=== PATIENT | male | born 1960 | race Caucasian/White ===

== ENCOUNTER 2019-04-01 10:04 | Observation (INO) | payer SELFPAY ==
[~2019-04-01] VITALS: Ht 170.2 cm; Wt 91.4 kg
--- NOTE | 2019-04-01 10:32 | REP ---
Head CT without contrast: History: CVA. Comparison study: No comparison study. CT findings: Bone window settings demonstrate an intact bony calvarium. There is no evidence of skull fracture or incidental bony calvarial lesion. The visualized paranasal sinuses appear clear. No intraorbital abnormality is seen. On soft tissue window setting images; the lateral, third, and fourth ventricles are normal in size and position. Vasquez-white differentiation pattern is normal above and below the tentorium. There are is no evidence of intracranial hemorrhage. No mass, edema, infarction, or midline shift is seen. No extra-axial fluid collection is appreciated. Impression: Negative noncontrast head CT. Electronically Signed by Yadiel Arango MD 04/01/2019 10:30 A
--- NOTE | 2019-04-01 11:07 | REP ---
Portable chest, 10:28 a.m., single AP view with the patient upright: There are no comparisons. The lung thacker are clear. The cardiac size is normal. The jayna, mediastinum, and skeletal structures are unremarkable. Impression: Negative portable chest. Electronically Signed by Monster Howell MD 04/01/2019 10:59 A
--- NOTE | 2019-04-01 11:17 | ECGEPIP ---
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
[2019-04-01 11:22] LABS: BASO % 0.3 % (0.0-1.0); EOS # 0.1 10^3/uL (0.0-0.5); EOS % 1.2 % (0.0-3.0); HEMATOCRIT 44.8 % (42.0-52.0); HEMOGLOBIN 15.5 g/dl (13.5-17.5); LYMPH # 2.2 10^3/uL (1.5-5.0); LYMPH % 31.7 % (24.0-44.0); MEAN CORPUSCULAR HEMOGLOBIN 30.3 pg (27.0-33.0); MEAN CORPUSCULAR HGB CONC 34.6 g/dl (32.0-36.5); MEAN CORPUSCULAR VOLUME 87.7 fl (80.0-96.0); MONO # 0.6 10^3/uL (0.0-0.8); MONO % 8.2 % (0.0-5.0); NEUTROPHILS % 58.3 % (36.0-66.0); PLATELET COUNT, AUTOMATED 326 10^3/uL (150-450); RED BLOOD COUNT 5.11 10^6/uL (4.30-6.10); WHITE BLOOD COUNT 6.8 10^3/uL (4.0-10.0)
[2019-04-01 11:31] LABS: INR 1.05; PROTHROMBIN TIME 13.4 SECONDS (11.8-14.0)
[2019-04-01 11:32] LABS: PARTIAL THROMBOPLASTIN TIME 27.2 SECONDS (25.0-38.4)
[2019-04-01 11:58] LABS: ALBUMIN 4.5 GM/DL (3.2-5.2); ALT/SGPT 38 U/L (12-78); BILIRUBIN,DIRECT 0.2 MG/DL (0.0-0.2); BILIRUBIN,TOTAL 1.1 MG/DL (0.2-1.0); CK-MB VALUE MASS 1.2 NG/ML (<3.6); CPK CREATINE PHOSPHOKINASE 147 U/L (39-308); MB/CK RELATIVE INDEX 0.82 (< OR =4); TOTAL PROTEIN 7.4 GM/DL (6.4-8.2); TROPONIN I < 0.02 NG/ML (< 0.10)
[2019-04-01] MEDS ORDERED: ASPIRIN 325 MG TAB PO ONE (12:45)
[2019-04-01 12:55] LABS: BLOOD UREA NITROGEN 17 MG/DL (7-18); CALCIUM LEVEL 9.6 MG/DL (8.5-10.1); CARBON DIOXIDE LEVEL 27 MEQ/L (21-32); CHLORIDE LEVEL 108 MEQ/L (98-107); GLOMERULAR FILTRATION RATE > 60.0 (>56); GLUCOSE, FASTING 96 MG/DL (70-100); POTASSIUM SERUM 3.9 MEQ/L (3.5-5.1); SODIUM LEVEL 141 MEQ/L (136-145)
--- NOTE | 2019-04-01 13:58 | HPEPDOC ---
General Date of Admission 04/01/19 Date of Service: Apr 01, 2019 Chief Complaint The patient is a 58-year-old male admitted for facial droop. Source: Patient Exam Limitations: No limitations History of Present Illness 58 year old male presents with L facial droop. States symptoms started Monday with episode of lightheadedness, lasted a few minutes and then resolved, followed by generalized weakness/fatigue. Slept all afternoon Monday which is unusual for him. Monday with episodes of confusion with word finding difficulties, balance issues, noticed L sided facial droop. Symptoms had completely resolved by Monday evening. Presents today at urging of family. BP on arrival 200/95 (currently 147/80), CT head negative, tx with ASA, admission for further management. Home Medications No Active Prescriptions or Reported Meds Allergies Coded Allergies: No Known Allergies (Verified Allergy, Unknown, 04/01/19) Past Medical History Medical History none Surgical History none Family History Significant Family History: Other (stroke father ) Social History * Smoker: Denies Alcohol: Denies Drugs: denies A-FIB/CHADSVASC A-FIB History Current/History of A-Fib/PAF?: No Review of Systems Constitutional: Denies: Chills, Fever, Night Sweats Eyes: Denies: Pain, Vision change ENT: Denies: Head Aches, Ear Pain, Dysphagia Skin: Denies: Rash, Lesions, Breakdown Pulmonary: Denies: Dyspnea, Cough Cardiovascular: Denies: Chest Pain, Palpitations, Orthopnea, Paroxysmal Noc. Dyspnea, Lt Headedness Gastrointestinal: Denies: Nausea, Vomiting, Abdominal Pain, Diarrhea Genitourinary: Denies: Dysuria, Frequency, Incontinence, Retention Hematologic: Denies: Bruising, Bleeding Excessively Musculoskeletal: Denies: Neck Pain, Back Pain, Joint Pain, Muscle Pain, Spasms Neurological: Denies: Weakness, Numbness, Change in speech, Confusion Psych: Reports: Mood Normal; Denies: Depression, Memory Issues Physical Examination General Exam: Positive: Alert, No Acute Distress Eye Exam: Positive: PERRLA, Conjunctiva & lids normal, EOMI; Negative: Sclera icteric ENT Exam: Positive: Atraumatic, Mucous membr. moist/pink, Pharynx Normal Neck Exam: Positive: Supple; Negative: JVD, thyromegaly Chest Exam: Positive: Clear to auscultation, Normal air movement Heart Exam: Positive: Rate Normal, Regular Rhythm, Normal S1, Normal S2; Negative: Murmurs, Rubs Telemetry: Positive: No significant arrhythmia Abdomen Exam: Positive: Normal bowel sounds, Soft; Negative: Tenderness, Hepatospenomegaly Extremity Exam: Positive: Normal pulses; Negative: Clubbing, Cyanosis, Edema Skin Exam: Positive: Nl turgor and temperature; Negative: Breakdown, Lesion Neuro Exam: Positive: Normal Gait, Normal Speech, Cranial Nerves 3-12 NL, Reflexes 2+ Psych Exam: Positive: Mental status NL, Mood NL, Oriented x 3 Vital Signs Vital Signs Date Time Temp Pulse Resp B/P (MAP) Pulse Ox O2 Delivery O2 Flow Rate FiO2 04/01/19 13:22 04/01/19 13:04 57 96 04/01/19 10:04 98.6 18 Room Air Laboratory Data Labs 24H Laboratory Tests 2 04/01/19 11:00: Immature Granulocyte % (Auto) 0.3, Neutrophils (%) (Auto) 58.3, Lymphocytes (%) (Auto) 31.7, Monocytes (%) (Auto) 8.2H, Eosinophils (%) (Auto) 1.2, Basophils (%) (Auto) 0.3, Neutrophils # (Auto) 4.0, Lymphocytes # (Auto) 2.2, Monocytes # (Auto) 0.6, Eosinophils # (Auto) 0.1, Basophils # (Auto) 0.0, Nucleated Red Blood Cells % (auto) 0.0, Prothrombin Time 13.4, Prothromb Time International Ratio 1.05, Activated Partial Thromboplast Time 27.2, Anion Gap 6L, Glomerular Filtration Rate > 60.0, Calcium Level 9.6, Total Bilirubin 1.1H, Direct Bilirubin 0.2, Aspartate Amino Transf (AST/SGOT) 24, Alanine Aminotransferase (ALT/SGPT) 38, Alkaline Phosphatase 76, Total Creatine Kinase 147, Creatine Kinase MB 1.2, Creatine Kinase MB Relative Index 0.82, Troponin I < 0.02, Total Protein 7.4, Albumin 4.5, Albumin/Globulin Ratio 1.55, Thyroid Stimulating Hormone (TSH) 1.180 CBC/BMP Laboratory Tests 04/01/19 11:00 Assessment/Plan 1. TIA - CT head negative. - admit to med/surg. - MRI brain, cardiac ECHO/carotid US. - neurochecks, ASA. - check lipid panel, A1c, TSH. 2. hypertension - monitor, IV as needed. Plan / VTE VTE Prophylaxis Ordered?: Yes HADLEY PALENCIA MD Apr 01, 2019 13:58
[2019-04-01] MEDS ORDERED: ACETAMINOPHEN TAB 650MG DOSE (2X325MG) PO PRN (14:00)
[2019-04-01] MEDS ORDERED: hydrALAZINE INJ 20 MG/ML VIAL IV PRN (14:15)
--- NOTE | 2019-04-01 15:57 | REPVR ---
PROCEDURE INFORMATION: Exam: MR Head Without Contrast Exam date and time: 04/01/2019 3:18 PM Age: 58 years old Clinical indication: Altered mental status/memory loss and weakness, facial; Confusion or disorientation; Additional info: TIA TECHNIQUE: Imaging protocol: MR of the head without contrast. COMPARISON: CT Head without contrast 04/01/2019 10:16 AM FINDINGS: Brain: There is no acute intracranial hemorrhage, cerebral edema, or midline shift. No restricted diffusion is present to suggest acute infarction. Ventricles: No hydrocephalus. Bones/joints: Unremarkable. Soft tissues: Unremarkable. Sinuses: Normal as visualized. No acute sinusitis. Mastoid air cells: Normal as visualized. No mastoid effusion. Orbits: Unremarkable. IMPRESSION: No acute findings. Electronically signed by: Greg Bonilla On 04/01/2019 15:57:12 PM
[2019-04-01 17:00] VITALS: BP 153/91
--- NOTE | 2019-04-01 19:05 | REPVR ---
EXAM: US Duplex Bilateral Extracranial Arteries. CLINICAL HISTORY: Other: TIA TECHNIQUE: Real-time ultrasound scan of the bilateral carotid and vertebral arteries, 2-D miller scale, with color Doppler flow and spectral waveform analysis. COMPARISON: None FINDINGS: Mild atherosclerotic plaque is identified at the carotid bifurcations. No penetrating ulcer is seen. Normal pulsatile low resistance waveforms are noted in the common and internal carotid arteries. The peak systolic velocity within the right internal carotid artery measures up to 96 cm/sec. This corresponds to less than 50% stenosis. The peak systolic velocity within the left internal carotid artery measures up to 69 cm/sec. This corresponds to less than 50% stenosis. The bilateral vertebral arteries have antegrade flow. IMPRESSION: 1. Less than 50% stenosis involving the bilateral internal carotid arteries 2. Antegrade flow in the bilateral vertebral arteries The degree of stenosis is based on the following consensus criteria developed by the Society of Radiologists in Ultrasound (SRU): Normal: ICA peak systolic velocity (PSV) less than 125 cm/s without plaque <50% stenosis: PSV <125 cm/s with estimated plaque < 50% and ICA/CCA <2 50-69% stenosis: PSV 125-230 cm/s with estimated plaque > 50% and ICA/CCA 2-4 >70% but less than near occlusion: PSV >230 cm/s, plaque >50%, and ICA/CCA > 4 Near occlusion: PSV- high, low, or undetectable, marked luminal narrowing from plaque Total occlusion: Flow undetectable and occluded ICA lumen Electronically signed by: Greg Bonilla On 04/01/2019 19:05:06 PM
[2019-04-01 19:51] VITALS: BP 168/87
[2019-04-02 04:00] VITALS: BP 122/58
[2019-04-02 07:12] LABS: HEMOGLOBIN A1c 6.1 %
[2019-04-02 07:31] LABS: ALBUMIN 3.9 GM/DL (3.2-5.2); ALT/SGPT 30 U/L (12-78); BILIRUBIN,TOTAL 1.3 MG/DL (0.2-1.0); BLOOD UREA NITROGEN 17 MG/DL (7-18); CALCIUM LEVEL 8.8 MG/DL (8.5-10.1); CARBON DIOXIDE LEVEL 27 MEQ/L (21-32); CHLORIDE LEVEL 107 MEQ/L (98-107); CHOLESTEROL LEVEL 218 MG/DL (<200); CREATININE FOR GFR 0.99 MG/DL (0.70-1.30); GLOMERULAR FILTRATION RATE > 60.0 (>56); GLUCOSE, FASTING 110 MG/DL (70-100); HDL CHOLESTEROL 40 MG/DL (>40); LDL CHOLESTEROL 156 MG/DL (<100); NON-HDL-C 178 MG/DL; POTASSIUM SERUM 3.9 MEQ/L (3.5-5.1); SODIUM LEVEL 138 MEQ/L (136-145); TOTAL PROTEIN 6.9 GM/DL (6.4-8.2); TRIGLYCERIDES LEVEL 109 MG/DL (<150)
[2019-04-02] MEDS ORDERED: ASPIRIN 81 MG CHEW TABLET PO SCH (09:00)
[2019-04-02] MEDS ORDERED: ASPI81CH33 PO (10:50)
--- NOTE | 2019-04-02 16:28 | DS.PDOC ---
Discharge Summary General Date of Admission Apr 01, 2019 at 10:05 Date of Discharge 04/02/2019 Discharge Summary PROCEDURES PERFORMED DURING STAY: [None]. ADMITTING DIAGNOSES / DISCHARGE DIAGNOSES: Left facial droop - likely 2/2 TIA, unlikely 2/2 CVA HTN; s/p Urgency DVT prophylaxis COMPLICATIONS/CHIEF COMPLAINT: Left facial droop HISTORY OF PRESENT ILLNESS / HOSPITAL COURSE: Patient is 58-year-old male with no significant past medical history, who presented to the emergency room with compensatory left-sided facial droop. Patient has reported that his symptoms had started on Monday. Patient also noted associated generalized weakness and fatigue. Patient had episodes of confusion and word finding difficulties, as well as imbalance. On Monday evening patient's symptoms had completely resolved. Blood pressure upon arrival to the emergency room. Was found to be 200s over 95. Patient was admitted to the hospitalist service for further evaluation and treatment. Patient received an MRI that was negative for any acute abnormalities. Patient also received a carotid ultrasound that was negative. Echocardiogram has been completed as an inpatient. Patient is cleared for home safety evaluation with physical therapy. Patient has been advised to follow up with his primary care provider and neurology within the next 7 days. DISCHARGE MEDICATIONS: Please see below. ALLERGIES: Please see below. PHYSICAL EXAMINATION ON DISCHARGE: Vitals (See below) General: Lying in bed, no acute distress, comfortable, AAOx3 HEENT: NC, AT CVS: +S1S2 Lungs: Fair air entry b/l, -w/r/r Abdomen: Soft, ND, NT Extremities: - Edema, - Calf tenderness LABORATORY DATA: Please see below. IMAGING: CT head 04/01: Negative noncontrast head CT. MRI Brain 04/01: No acute findings. Carotid US 04/01: 1. Less than 50% stenosis involving the bilateral internal carotid arteries 2. Antegrade flow in the bilateral vertebral arteries ACTIVITY: [As tolerated]. DISCHARGE PLAN: Follow-up with primary care provider and neurology within 7 days Remain compliant with treatment plan and medications Return to the ER if you experience any problems DISPOSITION: Home, Self-Care. DISCHARGE CONDITION: [Stable]. TIME SPENT ON DISCHARGE: 20 minutes Vital Signs/I&Os Vital Signs Date Time Temp Pulse Resp B/P (MAP) Pulse Ox O2 Delivery O2 Flow Rate FiO2 04/02/19 04:00 97.7 71 18 122/58 (79) 96 Room Air I&O- Last 24 Hours up to 6 AM 04/02/19 05:59 Intake Total 300 ml Output Total 250 ml Balance 50 ml Laboratory Data Labs 24H Laboratory Tests 2 04/02/19 06:38: Anion Gap 4L, Glomerular Filtration Rate > 60.0, Estimated Mean Plasma Glucose 128H, Hemoglobin A1c 6.1, Calcium Level 8.8, Total Bilirubin 1.3H, Aspartate Amino Transf (AST/SGOT) 19, Alanine Aminotransferase (ALT/SGPT) 30, Alkaline Phosphatase 67, Total Protein 6.9, Albumin 3.9, Albumin/Globulin Ratio 1.30, Triglycerides Level 109, Total Cholesterol 218H, LDL Cholesterol 156H, Non-HDL Cholesterol (LDL + VLDL) 178, Total HDL Cholesterol 40, Cholesterol/HDL Ratio 5.450H, Thyroid Stimulating Hormone (TSH) 1.340 CBC/BMP Laboratory Tests 04/02/19 06:38 Discharge Medications Scheduled Aspirin (Aspirin) 81 Mg Tab.chew, 1 TAB PO DAILY for pain Allergies Coded Allergies: No Known Allergies (Verified Allergy, Unknown, 04/01/19) SANDI PALENCIA MD Apr 02, 2019 16:27
--- NOTE | 2019-04-02 20:14 | ECHO ---
DATE OF PROCEDURE: 04/02/2019 REFERRING PHYSICIAN: Dr. Ndiaye INDICATION: Transient ischemic attack (TIA). Height 170 cm, weight 94 kg. DIMENSIONS: IVS: 1.0 LV: 3.3 LVPW: 1.0 LA: 3.8 Aorta: 3.1 RV: 3.9 Mitral E wave velocity: 77 A wave: 45 E prime septal: 7.6 E prime lateral: 11.7 Left atrial volume index: 21 FINDINGS: The study is of good technical quality. The patient is in sinus rhythm. Left ventricle is normal size and has normal systolic function, estimated left ventricular ejection fraction (LVEF) 60-65%. Right ventricle is also normal size and systolic function. Both atria appear normal. There is minimal sclerosis of aortic valve, but it is tricuspid and has normal opening. Mitral, tricuspid and pulmonic valves appear normal. No pericardial effusion is noted. Inferior vena cava was not well seen, but it appears relatively of small caliber. Aortic root appears normal. Aortic arch and abdominal aorta were not well seen. Doppler interrogation reveals competent aortic valve. There is trace mitral, tricuspid and pulmonic insufficiency. Unfortunately quality of TR jet was not sufficient to estimate pulmonary artery pressure. Mitral inflow pattern and tissue Doppler imaging of mitral annulus revealed normal diastolic function. CONCLUSIONS: 1. Study is of good technical quality, the patient is in sinus rhythm. 2. Normal left ventricular (LV) size, systolic and diastolic function. 3. No significant valvular disease. 4. Likely normal central venous pressure but unable to estimate pulmonary artery pressure. COMMENT: Subacute bacterial endocarditis (SBE) prophylaxis is not recommended. Essentially normal echocardiogram.
== END 2019-04-02 11:50 | disposition home or self-care (01) ==
LOC: M ED 10:04 → M ED INP 10:05 → ENRESERV 14:53 → M MS4PR 16:57
PROVIDERS: ADMIT Internal Medicine; ATTEND Internal Medicine
DX: G45.9 Transient cerebral ischemic attack, unspecified (principal); R29.810 Facial weakness; R53.1 Weakness; R53.83 Other fatigue; I10 Essential (primary) hypertension; Z79.82 Long term (current) use of aspirin

== ENCOUNTER 2019-12-03 11:09 | Emergency (ER) | payer OTHER ==
[~2019-12-03] VITALS: Ht 170.2 cm; Wt 95.0 kg
[~2019-12-03 11:09] MED LIST: ASPI81CH33 PO
[2019-12-03] MEDS: MORPHINE 2 MG/ML 1ML VIAL (J2270) IV PRN ×4 (11:40→14:35)
[2019-12-03 11:50] LABS: BASO % 0.3 % (0.0-1.0); EOS # 0.1 10^3/uL (0.0-0.5); EOS % 0.6 % (0.0-3.0); HEMATOCRIT 45.7 % (42.0-52.0); HEMOGLOBIN 15.2 g/dl (13.5-17.5); LYMPH # 2.4 10^3/uL (1.5-5.0); LYMPH % 28.1 % (24.0-44.0); MEAN CORPUSCULAR HEMOGLOBIN 29.7 pg (27.0-33.0); MEAN CORPUSCULAR HGB CONC 33.3 g/dl (32.0-36.5); MEAN CORPUSCULAR VOLUME 89.3 fl (80.0-96.0); MONO # 0.6 10^3/uL (0.0-0.8); NEUTROPHILS # 5.4 10^3/uL (1.5-8.5); NEUTROPHILS % 62.5 % (36.0-66.0); PLATELET COUNT, AUTOMATED 327 10^3/uL (150-450); RED BLOOD COUNT 5.12 10^6/uL (4.30-6.10); WHITE BLOOD COUNT 8.6 10^3/uL (4.0-10.0)
[2019-12-03 12:01] LABS: INR 0.92; PROTHROMBIN TIME 12.5 SECONDS (12.5-14.3)
[2019-12-03 12:02] LABS: PARTIAL THROMBOPLASTIN TIME 26.1 SECONDS (24.2-38.5)
[2019-12-03] MEDS ORDERED: NS 1,000 ML IV ONE (12:15)
[2019-12-03 12:16] LABS: ALBUMIN 4.4 GM/DL (3.2-5.2); BILIRUBIN,DIRECT 0.1 MG/DL (0.0-0.2); BILIRUBIN,TOTAL 0.6 MG/DL (0.2-1.0); TOTAL PROTEIN 7.2 GM/DL (6.4-8.2)
--- NOTE | 2019-12-03 12:19 | REP ---
INDICATION: Trauma COMPARISON: None. TECHNIQUE: Four views obtained bilaterally. FINDINGS: Four views of each ankle are performed. There is an extensive comminuted fracture of the distal left tibia which extends into the tibiotalar joint. There is posterior displacement of the posterior malleolus and mild displacement of the medial malleolus. Is fracture of the distal 3rd of the left fibula with mild lateral displacement and medial angulation. On the right I suspect a vertical talar fracture. A tiny calcific density seen just distal to each malleolus which could represent ligamentous calcifications or tiny avulsion fractures of indeterminate age. There is a linear calcification along the dorsal navicular which could represent an avulsion fracture of indeterminate age. There is soft tissue swelling bilaterally. IMPRESSION: Bilateral fractures as discussed in detail above. <Electronically signed by Monster Vasquez > 12/03/19 [id number]
--- NOTE | 2019-12-03 12:22 | REP ---
INDICATION: Trauma. COMPARISON: None. TECHNIQUE: SINGLE PORTABLE AP VIEW OF THE CHEST WAS PERFORMED. FINDINGS: THERE IS NO ACUTE INFILTRATE OR PULMONARY EDEMA. LUNGS ARE CLEAR. HEART IS NOT SIGNIFICANTLY ENLARGED. MEDIASTINAL SILHOUETTE IS UNREMARKABLE. THE VISUALIZED OSSEOUS STRUCTURES ARE INTACT. IMPRESSION: NO ACUTE PULMONARY DISEASE. <Electronically signed by Monster Vasquez > 12/03/19 [id number]
--- NOTE | 2019-12-03 12:22 | REP ---
INDICATION: Trauma COMPARISON: None. TECHNIQUE: AP and lateral views obtained. FINDINGS: There is a somewhat comminuted fracture of the head of the fibula. There is a horizontal fracture of the distal 3rd of the fibular shaft with mild medial displacement and lateral angulation. Extensive comminuted fracture of the distal end of the tibia extends into the tibiotalar joint. There is displacement of the posterior and medial malleolus. IMPRESSION: Multiple fractures as discussed above. <Electronically signed by Monster Vasquez > 12/03/19 [id number]
--- NOTE | 2019-12-03 12:39 | REP ---
INDICATION: Trauma. COMPARISON: Comparison head CT study April 01, 2019.. TECHNIQUE: Helical scanning is acquired. 5 mm axial images were reformatted. Coronal MPR images were generated. FINDINGS: Bone window settings demonstrate an intact bony calvarium. There is no evidence of skull fracture or incidental bony calvarial lesion. The visualized paranasal sinuses appear clear. No intraorbital abnormality is seen. On soft tissue window setting images; the lateral, third, and fourth ventricles are normal in size and position. Vasquez-white differentiation pattern is normal above and below the tentorium. There are is no evidence of intracranial hemorrhage. No mass, edema, infarction, or midline shift is seen. No extra-axial fluid collection is appreciated. There is minimal vascular calcification in the carotid siphons. IMPRESSION: Minimal vascular calcifications seen. Otherwise negative noncontrast head CT. <Electronically signed by Efraín Arango > 12/03/19 [id number]
--- NOTE | 2019-12-03 12:42 | REP ---
INDICATION: Trauma. COMPARISON: None. TECHNIQUE: Helical scanning is acquired and overlapping 2 mm high resolution axial images were generated and reviewed at bone and soft tissue window settings. Coronal and sagittal multiplanar re-formations images are generated. FINDINGS: There is no evidence of cervical spine element fracture. No skull base fracture is seen. Cervical vertebral body heights are preserved. Alignment is normal. Facet joints are normally aligned bilaterally at each cervical level on multiplanar re-formations images. There is no evidence of intraspinal or paraspinal hematoma. No extra vertebral abnormality is seen. There are degenerative disc changes at the C3-4, C4-5 and C5-6 level with reactive sclerosis and posterior osteophytic ridging at these levels. There is a bone island in the C6 vertebral body. Mild osteoarthritic facet changes are noted in the mid cervical spine bilaterally. There is mild bilateral uncovertebral spurring at C3-4 C4-5 and C5-6. The lung apices are clear. IMPRESSION: Degenerative spondylosis changes C3-4 through C5-6. Otherwise negative. No fracture seen.. <Electronically signed by Efraín Arango > 12/03/19 [id number]
--- NOTE | 2019-12-03 12:46 | REP ---
INDICATION: TRAUMA. COMPARISON: None. TECHNIQUE: Axial CT of bilateral hips performed without IV contrast. Sagittal and coronal reconstruction images are performed. FINDINGS: I see no acute fracture or dislocation bilaterally. There is mild joint space narrowing, subchondral sclerosis and spurring at both hip joints. Surrounding soft tissue structures are unremarkable. There are small inguinal hernias bilaterally containing fat. IMPRESSION: No acute fracture or dislocation bilateral hips. <Electronically signed by oMnster Vasquez > 12/03/19 [id number]
--- NOTE | 2019-12-03 14:27 | ECGEPIP ---
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
[2019-12-03 15:29] VITALS: BP 136/79
[2019-12-03] MEDS ORDERED: MORPHINE 4 MG/ML 1ML VIAL/SYRINGE (J2270) IV ONE (15:30)
== END 2019-12-03 15:33 | disposition short-term general hospital (02) ==
LOC: M ED 11:09
DX: S82.832A Other fracture of upper and lower end of left fibula, initial encounter for closed fracture (principal); S82.62XA Displaced fracture of lateral malleolus of left fibula, initial encounter for closed fracture; S82.52XA Displaced fracture of medial malleolus of left tibia, initial encounter for closed fracture; S92.101A Unspecified fracture of right talus, initial encounter for closed fracture; W11.XXXA Fall on and from ladder, initial encounter; Y92.89 Other specified places as the place of occurrence of the external cause; Z86.73 Personal history of transient ischemic attack (TIA), and cerebral infarction without residual deficits
CPT/HCPCS: 70450; 71045; 72125; 73590; 73610; 73700; 80047; 80076; 82150; 83605; 83690; 84484; 85025; 85610; 85730; 86850; 86900; 86901; 93005; 93041; 94760; 96361; 96374; 96376; 99285; J2270